=== PATIENT | female | born 1955 | race Caucasian/White ===

== ENCOUNTER 2020-04-11 14:51 | Outpatient (CLI) | payer MEDICARE, OTHER, SELFPAY ==
--- NOTE | 2020-04-11 15:04 | MR_ITS ---
WS: [id number] MRI LUMBAR SPINE NONCONTRAST HISTORY: LOW BACK PAIN COMPARISON: 04/12/2010 TECHNIQUE: Sagittal and axial multisequence imaging is submitted. Mild straightening of the normal lumbar lordosis. No fractures or marrow edema. Mild disc space narrowing and desiccation at L4-5 and L5-S1. Conus terminates normally at L1. L1-L2: Normal. L2-L3: Normal. L3-L4: Very mild annular disc bulge. Mild facet and ligamentum flavum hypertrophy. L4-L5: Small central disc protrusion. Mild annular disc bulging. There is also mild osteophytic ridgi ng contributing to mild bilateral foraminal narrowing. Central annular fissure within the disc. As co mpared to the prior examination no significant change. L5-S1: Central and LEFT subarticular disc protrusions are small but do encroach upon the thecal sac. Mild increase in size since the prior study. Mild contact on the LEFT L5 and S1 nerve roots. MR/MR lumbar spine wo con* [id number] IMPRESSION: 1. Moderate degenerative disc disease at L4-5 and L5-S1. 2. Small central disc protrusion at L4-5 with mild bilateral foraminal stenosi s. Similar to the prior examination. 3. Central and LEFT subarticular disc protrusions are small at L5-S1 with mild contact on the LEFT S1 and L5 nerve root. Disc protrusions have slightly progr essed since the prior study.
--- NOTE | 2020-04-11 15:04 | XR_ITS ---
WS: [id number] LATERAL LUMBAR SPINE: 3 view. Lateral radiographs are performed in upright neutral, flexion and extension to the patient's toleranc e. HISTORY: LOW BACK PAIN COMPARISON: None available. 4 mm retrolisthesis of L4 with no instability during flexion or extension. Moderate disc space narrow ing at L4-5 and L5-S1. No fractures. Mild facet joint arthritis at L4-5 and L5-S1. XR/XR lumbar spine f/e only [id number] IMPRESSION: 1. No lumbar spine instability. 2. L4 retrolisthesis by 4 mm.
== END 2020-04-11 14:52 | disposition home or self-care (01) ==
PROVIDERS: PCP Family Medicine; Visit Provider Nurse Practitioner
DX: M47.816 Spondylosis without myelopathy or radiculopathy, lumbar region (principal); M51.37 Other intervertebral disc degeneration, lumbosacral region; M51.26 Other intervertebral disc displacement, lumbar region; M51.27 Other intervertebral disc displacement, lumbosacral region
CPT/HCPCS: 72120; 72148

== ENCOUNTER 2020-04-13 12:11 | Outpatient (CLI) | payer MEDICARE, OTHER, SELFPAY ==
--- NOTE | 2020-04-13 12:14 | MM_ITS ---
WS: [id number] BILATERAL DIGITAL SCREENING MAMMOGRAPHY WITH CAD CLINICAL INFORMATION: SCREENING HISTORY: Screening mammogram. Bilateral breast soreness COMPARISON: None. TECHNIQUE: Bilateral CC and MLO views. FINDINGS: Scattered fibroglandular densities bilaterally. No suspicious focal mass, asymmetry, calcifications, or architectural distortion. No evidence of malignancy. MM/[place] [id number] IMPRESSION: BI-RADS: 1-Negative FOLLOW UP: 1 Year Follow-up Recommend return to annual screening mammography.
== END 2020-04-13 12:12 | disposition home or self-care (01) ==
LOC: RADSHAW 12:12
PROVIDERS: PCP Family Medicine; Visit Provider Family Medicine
DX: Z12.31 Encounter for screening mammogram for malignant neoplasm of breast (principal)
CPT/HCPCS: 77067

== ENCOUNTER 2021-05-15 09:22 | Outpatient (CLI) | payer MEDICARE, SELFPAY ==
--- NOTE | 2021-05-15 09:43 | MM_ITS ---
WS: [id number] BILATERAL SCREENING 3D TOMOSYNTHESIS DIGITAL MAMMOGRAM WITH CAD HISTORY: SCREENING COMPARISON: 04/13/2020 Bilateral CC and MLO views submitted. Computer aided detection analyzed. Breast composition: There are scattered areas of fibroglandular density. No suspicious masses, microc alcifications or architectural distortion. MM/[place] [id number] IMPRESSION: BI-RADS: 1-Negative FOLLOW UP: 1 Year Follow-up
== END 2021-05-15 09:23 | disposition home or self-care (01) ==
PROVIDERS: PCP Family Medicine; Visit Provider Family Medicine
DX: Z12.31 Encounter for screening mammogram for malignant neoplasm of breast (principal)
CPT/HCPCS: 77063; 77067

== ENCOUNTER → 2021-10-20 08:42 | Outpatient (BNVA) | payer MEDICARE, SELFPAY | PROVIDERS: PCP Family Medicine; Visit Provider Surgery | DX: Z86.010 Personal history of colon polyps (principal) | CPT/HCPCS: 99203 ==

== ENCOUNTER 2022-01-03 06:00 | Day surgery (SDC) | payer MEDICARE, SELFPAY ==
[2022-01-01 13:20] VITALS: BMI 25.4
--- NOTE | 2022-01-03 06:16 | W.PM.OPSFHP ---
Same Day Surgery H&P Indication for Procedure/HPI DATE OF PROCEDURE: January 03, 2022 CHIEF COMPLAINT/INDICATIONFOR SURGICAL PROCEDURE: History of colon polyps PREOP DIAGNOSIS: Colon polyps history PLANNED PROCEDURE: Operation Date: 01/03/22 07:30 Proposed Procedures p Colonoscopy 48424,Z86.010(Not Applicable) - Carlos Alberto Ivy MD 01/03/2022 This is a pleasant 66 years old female patient had history of colonoscopy couple of years ago and apparently she had polyps removed. At outside facility. And apparently there has been questionable attempt to remove a polyp that was not successful. Patient was referred to surgery for further evaluation and potential intervention. ROS All systems have been reviewed negative except as for the above or per problem list. Medications/Allergies* Home Medications Medication Instructions Recorded Confirmed Type albuterol 90 mcg/actuation aerosol 90 mcg inhalation PRN PRN Allergy 10/20/21 01/01/22 History inhaler Symptoms aspirin 81 mg tablet,delayed 81 mg PO DAILY 10/20/21 01/01/22 History release atorvastatin 20 mg tablet 20 mg PO DAILY 10/20/21 01/01/22 History cyclobenzaprine 10 mg tablet 10 mg PO TID 10/20/21 01/01/22 History diphenhydramine HCl 25 mg capsule 25 mg PO TID PRN Allergy Symptoms 10/20/21 01/02/22 History (Allergy (diphenhydramine)) lisinopril 40 mg tablet 40 mg PO DAILY 10/20/21 01/01/22 History lorazepam 0.5 mg tablet 0.5 mg PO DAILY PRN Anxiety 10/20/21 01/02/22 History magnesium chloride 64 mg 64 mg PO DAILY 10/20/21 01/01/22 History (magnesium chloride) tablet metoprolol succinate 50 mg 50 mg PO BID 10/20/21 01/01/22 History tablet,extended release 24 hr omeprazole 20 mg tablet,delayed 20 mg PO DAILY 10/20/21 01/01/22 History release trazodone 50 mg tablet 25 mg PO DAILY 10/20/21 01/01/22 History Allergies/Adverse Reactions Allergy/AdvReac Type Severity Reaction Status Date / Time duloxetine [From Cymbalta] Allergy Intermediate ALGY-Hives Verified 01/03/22 06:17 Penicillins Allergy Intermediate ALGY-Hives Verified 11/16/22 06:17 Sulfa (Sulfonamide Allergy Intermediate ALGY-Hives Verified 01/03/22 06:17 Antibiotics) Pertinent History/Comorbid Conditions* Medical History (Updated 10/20/21 @ 09:36 by Joe Marsh DO) COPD (chronic obstructive pulmonary disease) Fibromyalgia GERD (gastroesophageal reflux disease) History of colon polyps Hx of bronchitis Hypertension Osteoarthritis Surgical History (Updated 10/20/21 @ 09:34 by Joe Marsh DO) History of colonoscopy with polypectomy History of D&C Family History (Updated 10/20/21 @ 09:01 by Ember Handley MA) Diabetes Cancer Hypertension Social History Smoking and tobacco status: never smoked Pertinent Exam Findings alert, oriented x 3, clear to auscultation bilaterally, regular rate & rhythm and procedure specific exam findings (Abdominal exam nontender nondistended soft) Recommendations Surgery/Procedure today (Colonoscopy with possible biopsy) Other Plans: Plan of care; After thorough history and physical examination and reviewing the chart, plan to perform surveillance colonoscopy. I discussed with the patient in details the risks,benefits,alternatives and indications.The risk of aspiration, bleeding, soft tissue injury, perforation of the colon ,missed lesions and other potential concomitant complications were explained to the patient in details,also the potential need for Laproscoy/Laparotomy to repair any related complications including but not limited to colectomy and or Closotomy.The patient understood this well and did agree to proceed. Rationale was carefully and clearly discussed with the patient.Appropriate informed consent have been reviewed and signed All questions have been answered and all concerns have been addressed to patient's satisfaction. 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
[2022-01-03 06:37] VITALS: BP 169/97; PULSE 66; RESP 18; TEMP 36.3; O2SAT 99
[2022-01-03] MEDS: sodium chloride 0.9% 1,000 ML 30 ML IV (06:41)
--- NOTE | 2022-01-03 06:46 | ANES.PREANE2 ---
Pre-Anesthetic Assessment Height/Weight: Height 1.6 m Weight 65.317 kg Temp Pulse Resp BP Pulse Ox O2 Del Method 97.3 F L 66 18 169/97 99 01/03/22 06:37 01/03/22 06:37 01/03/22 06:37 01/03/22 06:37 01/03/22 06:37 01/03/22 06:37 Preop Diagnosis: History of colon polyps Operation Date: 01/03/22 07:30 Proposed Procedures p Colonoscopy 07626,Z86.010(Not Applicable) - Carlos Alberto Ivy MD Familial anesthetic complications: Slow to wake from D&C; was awake for previous colonoscopy Was Beta Escobar taken within 24 hours: Yes Was Clonidine taken within 24 hours: N/A Last intake: Intake Last Liquid Date 01/02/22 Last Liquid Time 19:00 Last Solid Date 01/01/22 Last Solid Time 22:00 Social Alcohol (3, 8oz glasses whiskey daily) and No tobacco Exam alert, oriented x 3, clear to auscultation bilaterally and regular rate & rhythm Airway Submandibular: within normal limits (small mouth opening) Cervical ROM: within normal limits Mallampati: Class III Dentition: partials (upper partial) Comments: Comments: 7 missing teeth History/ROS No significant history except as noted and No significant complaints Pulmonary Chronic Obstructive Pulmonary Disease, Exertional Dyspnea and Sleep Apnea (No CPAP) CV/HEM Arrythmia, Hypertension and Palpitations None reported Hepatic None reported GI Gastroesophageal Reflux Disease (None this AM) Metabolic None reported Musc/skel Fibromyalgia, Lower Back Pain, Osteoarthritis/DJD and Weakness (Due to ruptured discs) Neuropsych Anxiety, Depression, Neuropathy and Syncope (Vertigo) Anesthetic Plan ASA status: 3 Anesthesia: Anesthesia Evaluation, General and MAC Risk of > 500 ml blood loss (7ml/kg in children): No Medications/Allergies Home Medications Medication Instructions Recorded Confirmed Last Taken Type albuterol 90 mcg/actuation aerosol 90 mcg inhalation PRN PRN Allergy 10/20/21 01/01/22 01/02/22 History inhaler Symptoms aspirin 81 mg tablet,delayed 81 mg PO DAILY 10/20/21 01/01/22 01/02/22 History release atorvastatin 20 mg tablet 20 mg PO DAILY 10/20/21 01/01/22 01/03/22 04:30 History cyclobenzaprine 10 mg tablet 10 mg PO TID 10/20/21 01/01/22 01/02/22 History diphenhydramine HCl 25 mg capsule 25 mg PO TID PRN Allergy Symptoms 10/20/21 01/02/22 Unknown History (Allergy (diphenhydramine)) lisinopril 40 mg tablet 40 mg PO DAILY 10/20/21 01/01/22 01/02/22 History lorazepam 0.5 mg tablet 0.5 mg PO DAILY PRN Anxiety 10/20/21 01/02/22 Unknown History magnesium chloride 64 mg 64 mg PO DAILY 10/20/21 01/01/22 01/02/22 History (magnesium chloride) tablet metoprolol succinate 50 mg 50 mg PO BID 10/20/21 01/01/22 01/02/22 History tablet,extended release 24 hr omeprazole 20 mg tablet,delayed 20 mg PO DAILY 10/20/21 01/01/22 01/02/22 History release trazodone 50 mg tablet 25 mg PO DAILY 10/20/21 01/01/22 01/01/22 History Allergies Allergy/AdvReac Type Severity Reaction Status Date / Time duloxetine [From Cymbalta] Allergy Intermediate ALGY-Hives Verified 01/03/22 06:17 Penicillins Allergy Intermediate ALGY-Hives Verified 01/03/22 06:17 Sulfa (Sulfonamide Allergy Intermediate ALGY-Hives Verified 01/03/22 06:17 Antibiotics) Current Medications Generic Name Dose Route Start Last Admin Trade Name Freq PRN Reason Stop Dose Admin Sodium Chloride 1,000 mls @ 30 mls/hr 01/03/22 06:30 01/03/22 06:41 Sodium Chloride 0.9% IV 30 mls/hr .Q24H JUAN CARLOS Administration PFSH Anesthesia Medical History (Updated 10/20/21 @ 09:36 by Joe Marsh DO) COPD (chronic obstructive pulmonary disease) Fibromyalgia GERD (gastroesophageal reflux disease) History of colon polyps Hx of bronchitis Hypertension Osteoarthritis Surgical History History of colonoscopy with polypectomy History of D&C Family History Other Cancer Diabetes Hypertension Social History Smoking and tobacco status: never smoked Data Anesthesia Cardiac Studies: No Data to Display
[2022-01-03 07:51] VITALS: BP 148/68; PULSE 83; RESP 12; TEMP 36.2; O2SAT 98
[2022-01-03 08:05] VITALS: BP 156/78; PULSE 67; RESP 16; O2SAT 100
--- NOTE | 2022-01-03 14:41 | ANE.PACU2 ---
Inpatient post-anesthesia follow up: Airway intact: Yes Vital signs: Temperature 97.1 F Pulse Rate 67 Respiratory Rate 16 Blood Pressure 156/78 Pulse Oximetry 100 Oxygen Delivery Me thod Room Air Oxygen Flow Rate Fraction of Inspir ed Oxygen Hydration adequate: Yes Nausea and vomiting: No Pain level: 1 Mental status: Baseline
== END 2022-01-03 08:20 | disposition home or self-care (01) ==
PROVIDERS: PCP Family Medicine; Visit Provider Surgery
PROC: 0DJD8ZZ Inspection of Lower Intestinal Tract, Via Natural or Artificial Opening Endoscopic (ICD-10-PCS; CPT 45378; principal; 2022-01-03 07:30)
DX: Z86.010 Personal history of colon polyps (principal); D12.2 Benign neoplasm of ascending colon; K62.0 Anal polyp; K57.30 Diverticulosis of large intestine without perforation or abscess without bleeding; J44.9 Chronic obstructive pulmonary disease, unspecified; I10 Essential (primary) hypertension; K21.9 Gastro-esophageal reflux disease without esophagitis; M79.7 Fibromyalgia; M19.90 Unspecified osteoarthritis, unspecified site
CPT/HCPCS: 45380; 88305; J2704; J3490; J7030

== ENCOUNTER → 2022-01-17 10:52 | Outpatient (BNVA) | payer MEDICARE, SELFPAY | PROVIDERS: PCP Family Medicine; Visit Provider Surgery | DX: Z09 Encounter for follow-up examination after completed treatment for conditions other than malignant neoplasm (principal); K57.31 Diverticulosis of large intestine without perforation or abscess with bleeding; Z86.010 Personal history of colon polyps | CPT/HCPCS: 99212 ==

== ENCOUNTER 2023-04-19 12:44 | Outpatient (CLI) | payer MEDICARE, SELFPAY ==
--- NOTE | 2023-04-19 12:51 | XR_ITS ---
WS: [id number] SCREENING DEXA SCAN [facility] CLINICAL INFORMATION: OSTEOPOROSIS SCREENING COMPARISON: None. FINDINGS: The L1-L4 bone mineral density measures 1.191 g/cm2. This corresponds to a T score score of 0.1 and Z score of 1.8. Left femoral neck bone mineral density measures 0.830 g/cm2. This corresponds to a T score of -1.4 an d Z score of 0.1. Right femoral neck bone mineral density measures 0.761 g/cm2. This corresponds to a T score -2.0of an d Z score of -0.5. Mean femoral neck bone mineral density measures 0.796 g/cm2. This corresponds to a T score of -1.7 an d Z score of -0.2. IMPRESSION: Normal bone mineralization lumbar spine. Osteopenia femoral necks. Patient's FRAX calculated 10 year probability for major osteoporotic fracture is 12.0% and osteoporot ic hip fracture is 2.1%.
--- NOTE | 2023-04-19 13:06 | MM_ITS ---
WS: [id number] BILATERAL 3D TOMOSYNTHESIS DIGITAL SCREENING MAMMOGRAPHY WITH CAD CLINICAL INFORMATION: SCREENING HISTORY: Screening mammogram. No current complaints. COMPARISON: 2021 TECHNIQUE: Bilateral CC and MLO views. FINDINGS: Scattered fibroglandular densities bilaterally. No suspicious focal mass, asymmetry, calcifications, or architectural distortion. No evidence of malignancy. IMPRESSION: MM/[place] [id number] BI-RADS: 1-Negative FOLLOW UP: 1 Year Follow-up Recommend return to annual screening mammography.
== END 2023-04-19 12:45 | disposition home or self-care (01) ==
LOC: RAD 12:44
PROVIDERS: PCP Family Medicine; Visit Provider Family Medicine
DX: Z12.31 Encounter for screening mammogram for malignant neoplasm of breast (principal); Z13.820 Encounter for screening for osteoporosis; R92.323 Mammographic fibroglandular density, bilateral breasts; M85.88 Other specified disorders of bone density and structure, other site; Z78.0 Asymptomatic menopausal state
CPT/HCPCS: 77063; 77067; 77080

== ENCOUNTER 2024-08-06 02:58 | Emergency (ER) | payer MEDICARE, SELFPAY ==
[2024-08-06 02:59] VITALS: BP 172/87; PULSE 69; RESP 16; TEMP 36.6; O2SAT 97; BMI 23.3
--- NOTE | 2024-08-06 03:06 | CTR_ITS ---
PROCEDURE INFORMATION: Exam: CT Head Without Contrast Exam date and time: 08/06/2024 3:22 AM Age: 68 years old Clinical indication: Injury or trauma; Fall; Blunt trauma (contusions or hematomas); Consciousness not specified; Additional info: Fall, head injury TECHNIQUE: Imaging protocol: Computed tomography of the head without contrast. Radiation optimization: All CT scans at this facility use at least one of these dose optimization techniques: automated exposure control; mA and/or kV adjustment per patient size (includes targeted exams where dose is matched to clinical indication); or iterative reconstruction. COMPARISON: No relevant prior studies available. RADIATION DOSE METRICS: Total DLP (mGy-cm): 1013.6 FINDINGS: Brain: No focal hemorrhage or midline shift is identified. The ventricles and parenchyma show mild atrophy and chronic bicerebral white matter ischemic change. Cerebral ventricles: No ventriculomegaly or evidence of hydrocephalus. Paranasal sinuses: Severe left and mild right maxillary sinus disease with internal high density. Fungal etiology is not excluded. Mastoid air cells: Visualized mastoid air cells are well aerated. Bones: No displaced skull fracture is noted. Soft tissues: Right posterior scalp injury. Vasculature: Diffuse vascular calcifications are present. CT/CT head wo con* [id number] IMPRESSION: 1. No acute intracranial hemorrhage. 2. Right scalp injury. 3. Mild age-related changes. 4. A few other chronic/incidental findings above.
--- NOTE | 2024-08-06 03:07 | W.ED.HEATRA ---
HPI - Head Injury General: Chief complaint: Fall Stated complaint: ams post fall Time Seen by Provider: 08/06/24 03:06 History of Present Illness: 68-year-old female who presents emergency room by ambulance after fall and head injury. Says she got up to go to the bathroom and became dizzy/vertiginous and lost her balance and fell. She hit the back of her head. She has a small lump on the back of her head. No loss of consciousness. She does states she has not a little bit to drink before she went to bed. She currently is not altered. She takes a baby aspirin but no other anticoagulation. No nausea or vomiting. No focal motor deficits. No chest pain. No abdominal pain. No extremity injury Related Data Home Medications ?Medication ?Instructions ?Recorded ?Confirmed albuterol 90 mcg/actuation aerosol 90 mcg inhalation PRN PRN Allergy 10/20/21 01/20/22 inhaler Symptoms aspirin 81 mg tablet,delayed 81 mg PO DAILY 10/20/21 01/20/22 release Held on 01/03/22. Instructions: Resume on 01/06/22. atorvastatin 20 mg tablet 20 mg PO DAILY 10/20/21 01/20/22 cyclobenzaprine 10 mg tablet 10 mg PO TID 10/20/21 01/20/22 diphenhydramine HCl 25 mg capsule 25 mg PO TID PRN Allergy Symptoms 10/20/21 01/20/22 (Allergy (diphenhydramine)) lisinopril 40 mg tablet 40 mg PO DAILY 10/20/21 01/20/22 lorazepam 0.5 mg tablet 0.5 mg PO DAILY PRN Anxiety 10/20/21 01/20/22 magnesium chloride 64 mg 64 mg PO DAILY 10/20/21 01/20/22 (magnesium chloride) tablet metoprolol succinate 50 mg 50 mg PO BID 10/20/21 01/20/22 tablet,extended release 24 hr omeprazole 20 mg tablet,delayed 20 mg PO DAILY 10/20/21 01/20/22 release trazodone 50 mg tablet 25 mg PO DAILY 10/20/21 01/20/22 Allergies Allergy/AdvReac Type Severity Reaction Status Date / Time duloxetine (From Cymbalta) Allergy Intermediate ALGY-Hives Verified 01/20/22 08:18 Penicillins Allergy Intermediate ALGY-Hives Verified 01/20/22 08:18 Sulfa (Sulfonamide Allergy Intermediate ALGY-Hives Verified 01/20/22 08:18 Antibiotics) Review of Systems Narrative: Constitutional symptoms: Negative except as documented in HPI. Skin symptoms: Negative except as documented in HPI. Eye symptoms: Negative except as documented in HPI. ENMT symptoms: Negative except as documented in HPI. Respiratory symptoms: Negative except as documented in HPI. Cardiovascular symptoms: Negative except as documented in HPI. Gastrointestinal symptoms: Negative except as documented in HPI. Genitourinary symptoms: Negative except as documented in HPI. Musculoskeletal symptoms: Negative except as documented in HPI. Neurologic symptoms: Negative except as documented in HPI. Psychiatric symptoms: Negative except as documented in HPI. Endocrine symptoms: Negative except as documented in HPI. PFSH ED PFSH: Medical History COPD (chronic obstructive pulmonary disease) Fibromyalgia GERD (gastroesophageal reflux disease) History of colon polyps Hx of bronchitis Hypertension Osteoarthritis Surgical History History of colonoscopy with polypectomy History of D&C Family History Other Cancer Diabetes Hypertension Social History Smoking and tobacco/nicotine status: never used tobacco/nicotine Physical Exam Narrative: EXAM NARRATIVE: General: Alert, no acute distress. Skin: Warm, dry. Head: Normocephalic, atraumatic. Neck: Supple, trachea midline. Eye: Extraocular movements are intact. Ears, nose, mouth and throat: mucosa moist. Cardiovascular: Regular, Normal peripheral perfusion. Respiratory: Lungs are clear to auscultation, respirations are non-labored, breath sounds are equal, Symmetrical chest wall expansion. Gastrointestinal: Soft, Nontender, Non distended Musculoskeletal: Normal ROM, no deformity. Neurological: Alert and oriented, No focal neurological deficit observed. Psychiatric: Cooperative, appropriate mood & affect. Course Vital Signs: Vital signs: Vital Signs Temperature 97.8 F 08/06/24 02:59 Pulse Rate 67 08/06/24 03:13 Respiratory Rate 16 08/06/24 02:59 Blood Pressure 172/87 08/06/24 03:13 Pulse Oximetry 96 08/06/24 03:13 Oxygen Delivery Me thod Room Air 08/06/24 03:13 MDM - Head Injury Medcial Decision Making Medical decision making: Differential diagnosis including but not limited to and based on the above HPI, review of systems and physical exam: patient with fall and head injury. Subdural hematoma, subarachnoid hemorrhage, concussion, skull fracture. Orders placed to evaluate differential diagnosis based on the above differential, HPI and physical exam CT scan of the head was ordered. CT head: Scalp hematoma. No acute intracranial process. no intracranial hemorrhage, no evidence of infarct. no evidence of acute fracture.This was reviewed and interpreted by myself the ER physician. I reviewed the patient's medical record. Assessment and plan: Fall Head injury - Discharged home - Discussed plan with patient. Answered any questions. - Evaluation and treatment of this problem were appropriate in the emergency setting. Lab Data Radiology Impressions Head CT 08/06/24 03:06 IMPRESSION: 1. No acute intracranial hemorrhage. 2. Right scalp injury. 3. Mild age-related changes. 4. A few other chronic/incidental findings above. All radiology interpretation(s) finalized by discharge Discharge Plan Discharge Patient Disposition: Home Clinical Impression: Closed head injury Condition: Stable Prescriptions: No Action lorazepam 0.5 mg tablet 0.5 mg PO DAILY PRN (Reason: Anxiety) magnesium chloride 64 mg magnesium tablet 64 mg PO DAILY aspirin 81 mg tablet,delayed release (DR/EC) 81 mg PO DAILY diphenhydramine HCl [Allergy (diphenhydramine)] 25 mg capsule 25 mg PO TID PRN (Reason: Allergy Symptoms) trazodone 50 mg tablet 25 mg PO DAILY metoprolol succinate 50 mg tablet extended release 24 hr 50 mg PO BID atorvastatin 20 mg tablet 20 mg PO DAILY lisinopril 40 mg tablet 40 mg PO DAILY omeprazole 20 mg tablet,delayed release (DR/EC) 20 mg PO DAILY albuterol 90 mcg/actuation aerosol 90 mcg inhalation PRN PRN (Reason: Allergy Symptoms) cyclobenzaprine 10 mg tablet 10 mg PO TID Discharge Orders: Discharge ED (Routine); Ordered 08/06/24 Ordered By: Shakira Portillo Referrals: Gray Aguirre MD [Primary Care Provider, Family Practice] Discharge Diet: Usual diet Discharge Activity: Increase activity as tolerated Patient Instructions: Fall Prevention for Older Adults (ED), Opioid Safety, Pain Management Activity Restrictions/Additional Instructions: Thank you for choosing [facility] for your healthcare needs today. You have been screened and evaluated and felt safe for discharge. Health conditions do change or evolve sometimes and as such it is important that you follow up with your Primary Doctor to be re checked, 3-5 days is a general good time frame for follow up. 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
[2024-08-06 03:13] VITALS: BP 172/87; PULSE 67; O2SAT 96
[2024-08-06 04:06] VITALS: BP 174/89; PULSE 63; O2SAT 97
== END 2024-08-06 04:09 | disposition home or self-care (01) ==
PROVIDERS: Emergency Provider Emergency Medicine; PCP Family Medicine
DX: S09.8XXA Other specified injuries of head, initial encounter (principal); Z79.82 Long term (current) use of aspirin; J44.9 Chronic obstructive pulmonary disease, unspecified; I10 Essential (primary) hypertension; W19.XXXA Unspecified fall, initial encounter
CPT/HCPCS: 70450; 99284

== ENCOUNTER 2024-10-16 13:57 | Outpatient (CLI) | payer MEDICARE, SELFPAY ==
--- NOTE | 2024-10-16 14:03 | MM_ITS ---
WS: [id number] BILATERAL 3D TOMOSYNTHESIS DIGITAL SCREENING MAMMOGRAPHY WITH CAD CLINICAL INFORMATION: SCREENING HISTORY: Screening mammogram. No current complaints. COMPARISON: 2023 TECHNIQUE: Bilateral CC and MLO views. FINDINGS: Scattered fibroglandular densities bilaterally. No suspicious focal mass, asymmetry, calcifications, or architectural distortion. No evidence of malignancy. MM/MM scr BI tomosynthesis [id number] IMPRESSION: DENSITY: There are scattered areas of fibroglandular density. BI-RADS: 1 - Negative. FOLLOW UP: 1 Year Follow-up Recommend return to annual screening mammography.
== END 2024-10-16 13:58 | disposition home or self-care (01) ==
LOC: RAD 13:59
PROVIDERS: PCP Family Medicine; Visit Provider Family Medicine
DX: Z12.31 Encounter for screening mammogram for malignant neoplasm of breast (principal); R92.323 Mammographic fibroglandular density, bilateral breasts
CPT/HCPCS: 77063; 77067

== ENCOUNTER 2024-10-29 11:54 | Emergency (ER) | payer MEDICARE, SELFPAY ==
[2024-10-29 12:15] VITALS: BP 197/82; PULSE 63; RESP 18; TEMP 36.7; O2SAT 100; BMI 24.7
--- NOTE | 2024-10-29 12:41 | W.ED.GENADLT ---
HPI - General Adult General: Chief complaint: General Medical Stated complaint: LT jaw swollen Time Seen by Provider: 10/29/24 12:35 History of Present Illness: 68-year-old female presents emergency room with left submandibular gland swelling. Said this happened the other day and she drank some pickle juice and it got better. It is recurred again today. She had the swelling happened so fast she was afraid it might block off her airway. Related Data Home Medications ?Medication ?Instructions ?Recorded ?Confirmed albuterol 90 mcg/actuation aerosol 90 mcg inhalation PRN PRN Allergy 10/20/21 01/20/22 inhaler Symptoms aspirin 81 mg tablet,delayed 81 mg PO DAILY 10/20/21 01/20/22 release Held on 01/03/22. Instructions: Resume on 01/06/22. atorvastatin 20 mg tablet 20 mg PO DAILY 10/20/21 01/20/22 cyclobenzaprine 10 mg tablet 10 mg PO TID 10/20/21 01/20/22 diphenhydramine HCl 25 mg capsule 25 mg PO TID PRN Allergy Symptoms 10/20/21 01/20/22 (Allergy (diphenhydramine)) lisinopril 40 mg tablet 40 mg PO DAILY 10/20/21 01/20/22 lorazepam 0.5 mg tablet 0.5 mg PO DAILY PRN Anxiety 10/20/21 01/20/22 magnesium chloride 64 mg 64 mg PO DAILY 10/20/21 01/20/22 (magnesium chloride) tablet metoprolol succinate 50 mg 50 mg PO BID 10/20/21 01/20/22 tablet,extended release 24 hr omeprazole 20 mg tablet,delayed 20 mg PO DAILY 10/20/21 01/20/22 release trazodone 50 mg tablet 25 mg PO DAILY 10/20/21 01/20/22 Previous Rx's ?Medication ?Instructions ?Recorded dexamethasone 6 mg tablet 6 mg PO DAILY 5 days #5 tabs 10/29/24 Allergies Allergy/AdvReac Type Severity Reaction Status Date / Time duloxetine (From Cymbalta) Allergy Intermediate ALGY-Hives Verified 01/20/22 08:18 Penicillins Allergy Intermediate ALGY-Hives Verified 01/20/22 08:18 Sulfa (Sulfonamide Allergy Intermediate ALGY-Hives Verified 01/20/22 08:18 Antibiotics) Review of Systems Narrative: Constitutional symptoms: Negative except as documented in HPI. Skin symptoms: Negative except as documented in HPI. Eye symptoms: Negative except as documented in HPI. ENMT symptoms: Negative except as documented in HPI. Respiratory symptoms: Negative except as documented in HPI. Cardiovascular symptoms: Negative except as documented in HPI. Gastrointestinal symptoms: Negative except as documented in HPI. Genitourinary symptoms: Negative except as documented in HPI. Musculoskeletal symptoms: Negative except as documented in HPI. Neurologic symptoms: Negative except as documented in HPI. Psychiatric symptoms: Negative except as documented in HPI. Endocrine symptoms: Negative except as documented in HPI. PFS ED PFSH: Medical History (Updated 10/29/24 @ 12:45 by Shakira Portillo MD) GERD (gastroesophageal reflux disease) COPD (chronic obstructive pulmonary disease) Hypertension Fibromyalgia Osteoarthritis Hx of bronchitis History of colon polyps Surgical History History of colonoscopy with polypectomy History of D&C Family History Other Cancer Diabetes Hypertension Social History Smoking and tobacco/nicotine status: never used tobacco/nicotine Physical Exam Narrative: EXAM NARRATIVE: General: Alert, no acute distress. Skin: warm and dry Head: Normocephalic Neck: Trachea midline Eye: Extraocular movements are intact. Ears, nose, mouth and throat: Oral mucosa moist. Left submandibular swelling. Mild tenderness. No redness. Respiratory: Respirations are non-labored Musculoskeletal: Normal ROM Gastrointestinal: Abdomen does not appear distended Neurological: Alert and oriented, No focal neurological deficit observed. Psychiatric: Cooperative, appropriate mood & affect. Course Vital Signs: Vital signs: Vital Signs Temperature 98.1 F 10/29/24 12:15 Pulse Rate 63 10/29/24 12:15 Respiratory Rate 18 10/29/24 12:15 Blood Pressure 197/82 10/29/24 12:15 Pulse Oximetry 100 10/29/24 12:15 Oxygen Delivery Me thod Room Air 10/29/24 12:15 MDM - General Adult Medical Decision Making Assessment and plan: Sialadenitis - decadron in er. - Discharged home - Discussed plan with patient. Answered any questions. - Evaluation and treatment of this problem were appropriate in the emergency setting. No radiology studies performed this visit Discharge Plan Discharge Patient Disposition: Home Clinical Impression: Sialoadenitis of submandibular gland Condition: Stable Prescriptions: New dexamethasone 6 mg tablet 6 mg PO DAILY 5 Days Qty: 5 0RF No Action lorazepam 0.5 mg tablet 0.5 mg PO DAILY PRN (Reason: Anxiety) magnesium chloride 64 mg magnesium tablet 64 mg PO DAILY aspirin 81 mg tablet,delayed release (DR/EC) 81 mg PO DAILY diphenhydramine HCl [Allergy (diphenhydramine)] 25 mg capsule 25 mg PO TID PRN (Reason: Allergy Symptoms) trazodone 50 mg tablet 25 mg PO DAILY metoprolol succinate 50 mg tablet extended release 24 hr 50 mg PO BID atorvastatin 20 mg tablet 20 mg PO DAILY lisinopril 40 mg tablet 40 mg PO DAILY omeprazole 20 mg tablet,delayed release (DR/EC) 20 mg PO DAILY albuterol 90 mcg/actuation aerosol 90 mcg inhalation PRN PRN (Reason: Allergy Symptoms) cyclobenzaprine 10 mg tablet 10 mg PO TID Discharge Orders: Discharge ED (Routine); Ordered 10/29/24 Ordered By: Shakira Portillo Referrals: Gray Aguirre MD [Primary Care Provider, Family Practice] Emmanuel Leblanc MD [Physician, Ear, Nose, Throat] Referral Note: Please call for an appointment with ENT if swelling does not improve. Discharge Diet: Advance as tolerated Discharge Activity: Increase activity as tolerated Patient Instructions: Sialoadenitis (ED), Opioid Safety, Pain Management, Patient Portal & [facility] Instructions, Salivary Stone Activity Restrictions/Additional Instructions: Thank you for choosing [facility] for your healthcare needs today. You have been screened and evaluated and felt safe for discharge. Health conditions do change or evolve sometimes and as such it is important that you follow up with your Primary Doctor to be re checked, 3-5 days is a general good time frame for follow up. You are always welcome to return to the ED for re assessment if your symptoms are worsening or you have new concerns Print Language: Setswana Coding Level of Care Code ED Sweatband Separator for Liana Trinidad
== END 2024-10-29 12:54 | disposition home or self-care (01) ==
PROVIDERS: Emergency Provider Emergency Medicine; PCP Family Medicine
DX: K11.20 Sialoadenitis, unspecified (principal); Z79.82 Long term (current) use of aspirin; J44.9 Chronic obstructive pulmonary disease, unspecified; I10 Essential (primary) hypertension
CPT/HCPCS: 96372; 99284; J1100

== ENCOUNTER 2025-01-29 07:55 | Outpatient (CLI) | payer MEDICARE, SELFPAY ==
--- NOTE | 2025-01-29 08:08 | CT_ITS ---
WS: [id number] CT NECK WITH CONTRAST HISTORY: ACUTE SIALOADENITIS OF PAROTID GLAND, and LEFT neck swelling and pain for 2 months. TECHNIQUE: Contiguous 2 mm axial images are performed through the neck with intravenous contrast. Sagittal and coronal reformats are also submitted. All CT scans at [facility] use at least one of these dose optimization techniques: automated exposure control; mA and/or kV adjustment per patient size (includes targeted exams where dose is matched to clinical indication); or iterative reconstruction. CONTRAST: CONTRAST: Omnipaque 350; 100 mL IV. DLP: 228.81 mGy.cm COMPARISON: None available. There is very slight hyper enhancement of the LEFT parotid gland when compared to the RIGHT. No mass identified. No soft tissue fat stranding or inflammation. Parotid duct is normal size. No stones or noted along the duct or obstruction. Normal submandibular glands. Normal nasopharynx and oropharynx. No tongue base mass. Normal appearance of the larynx and subglottic airway. RIGHT thyroid nodule measures 1.9 x 1.1 cm. Small caliber LEFT thyroid. No cervical chain pathologically enlarged lymph nodes. There are a few small lymph nodes at level 1 and level 2 which are normal. No osseous abnormalities. Visualized portions of the skull base demonstrate no abnormalities. Orbits and globes are within normal limits. No soft tissue masses. Mucoperiosteal thickening in the sinus cavities visualized. There is extensive artifact from the patient's dental amalgam. Lung apices are clear. CT/CT neck w con* [id number] IMPRESSION: 1. Very mild enhancement in the LEFT parotid gland as compared to the RIGHT de la cruz ggesting a mild parotiditis. 2. Parotid ducts are normal size and caliber. No stones identified. 3. No inflammation surrounding the parotid glands of the ducts. 4. RIGHT thyroid nodule 1.9 x 1.1 cm. Recommend evaluation by ultrasound. 5. No cervical chain adenopathy.
[2025-01-29 08:37] LABS: Blood Urea Nitrogen 10 mg/dL (8-23)
[2025-01-29] MEDS: iohexol 350 mg/mL 500 mL Btl (per mL) IV (08:41)
== END 2025-01-29 07:56 | disposition home or self-care (01) ==
LOC: RAD 07:56
PROVIDERS: PCP Family Medicine; Visit Provider Nurse Practitioner Family
DX: E04.1 Nontoxic single thyroid nodule (principal)
CPT/HCPCS: 70491; 82565; 84520